=== PATIENT | male | born 1970 | race Caucasian/White ===

== ENCOUNTER → 2017-11-14 | Outpatient (CLI) | payer OTHER ==
--- NOTE | 2017-11-15 12:32 | TST ---
[place] [address] TREADMILL STRESS TEST Name: YUNG SLATER Room: [facility]#: [id number] Admission: 11/14/17 Attend Phys: Loc Wheatley, Discharge: Date of : 68 Date of Service: 11/14/17 1337 Report #: [id number] THIS REPORT FOR: //name// CC: Fern Wheatley DATE OF SERVICE: 11/14/2017 Resting 12-lead electrocardiogram demonstrates sinus rhythm and is borderline normal. The patient exercised for 11 minutes according to a standard [place] protocol, stopping because of shortness of breath, but denying chest pain. The patient achieved a peak heart rate of 156, 90% of the age-predicted maximum. Blood pressure was 148/107 initially. It increased to 205/104 during exercise and fell to 159/94 post exercise. There were no ischemic ST-T alterations noted during or post exercise. There were occasional isolated PVCs during the post-exercise phase; no complex arrhythmias were noted. IMPRESSION: 1. Negative treadmill exercise test for provocation of ischemic ST-T alterations. 2. No chest pain provoked by exertion. 3. Appropriate heart rate and systolic blood pressure responses to exercise. 4. Systemic hypertension at rest. 5. Occasional isolated premature ventricular contractions during the post-exercise phase. 6. Excellent level of fitness for age. <ELECTRONICALLY SIGNED> By: Loc Gonsales MD, [facility] 11/15/17 1232 [id number] Loc Gonsales MD, [facility] /nt
== END ==
LOC: M.CRD 10:56
DX: R94.31 Abnormal electrocardiogram [ECG] [EKG] (principal)